=== PATIENT | female | born 1970 | race Caucasian/White ===

== ENCOUNTER 2024-01-25 10:05 | Day surgery (SDC) | payer MEDICAID ==
[2024-01-22 11:17] VITALS: BMI 22.4
[2024-01-25] MEDS ORDERED: Ketorolac Tromethamine 30 MG (1 mL) VIAL ONE (10:40)
[2024-01-25] MEDS ORDERED: Acetaminophen 500 MG TAB ONE (10:41)
[2024-01-25] MEDS ORDERED: Lidocaine 2% PF 5 ML VIAL ONE (10:53)
[2024-01-25] MEDS ORDERED: EPINEPHrine 1 MG/ML VIAL ONE (10:53)
[2024-01-25] MEDS ORDERED: Bupivacaine 0.25% HCL 30 ML VIAL ONE (10:53)
[2024-01-25 11:33] LABS: #Basophils 0.12 10x3/uL (0.0-0.2); %Basophils 0.7 % (0.0-1.0); %Lymphocytes 30.4 % (21.0-51.0); %Monocytes 8.1 % (0.0-10.0); %Neutrophils 55.7 % (42.0-75.0); Hematocrit 37.2 % (36.0-47.0); Hemoglobin 12.2 g/dL (12.0-16.0); Mean Corpuscular HGB CONC 32.8 g/dL (32.0-36.0); Mean Corpuscular Volume 88.4 fL (78.0-98.0); Mean Platelet Volume 9.5 fL (7.4-10.4); Platelet Count 475 10x3/uL (130-400); Red Blood Cell (RBC) Count 4.21 mill/uL (4.20-5.40)
[2024-01-25 11:40] LABS: Anion Gap 13 mmol/L (10-20); BUN (Urea Nitrogen) 19 mg/dL (9.8-20.1); Calc. Creatinine Clearance 66 mL/min (70-130); Calcium 10.1 mg/dL (7.8-10.44); Carbon Dioxide 16 mmol/L (22-29); Chloride 113 mmol/L (98-107); Estimated GFR 74; Glucose 82 mg/dL (70-105); Potassium 4.2 mmol/L (3.5-5.1); Sodium 138 mmol/L (136-145)
[2024-01-25] MEDS ORDERED: Sodium Chloride 0.9% 100 ML ONE (11:48)
[2024-01-25] MEDS ORDERED: CEFAZOLIN 2 GM VIAL ONE (11:48)
[2024-01-25] MEDS ORDERED: Lidocaine 1% PF 5 ML VIAL ONE (12:49)
[2024-01-25] MEDS ORDERED: PROPOFOL 40 ML ONE (12:49)
[2024-01-25] MEDS ORDERED: Midazolam HCl 2 mg/2 ml Vial ONE (12:55)
== END 2024-01-25 14:20 | disposition home or self-care (01) ==
LOC: SDC 10:05
PROVIDERS: ATTEND Specialist
PROC: 0JH63WZ Insertion of Totally Implantable Vascular Access Device into Chest Subcutaneous Tissue and Fascia, Percutaneous Approach (ICD-10-PCS; principal; 2024-01-25)
DX: C50.912 Malignant neoplasm of unspecified site of left female breast (principal); E78.00 Pure hypercholesterolemia, unspecified; I10 Essential (primary) hypertension; Z90.710 Acquired absence of both cervix and uterus; F17.200 Nicotine dependence, unspecified, uncomplicated
CPT/HCPCS: 71045; 80048; 85025; C1788; J0171; J0665; J1642; J1885; J2001; J2250; J2704; J3490

== ENCOUNTER 2024-01-26 14:59 | Observation (INO) | payer MEDICAID ==
[2024-01-26 16:13] LABS: BHCG - Serum Negative (NEGATIVE); Pregs Control Background? CLEAR/WHITE (CLR/WHITE); Pregs Control Bar Appear? YES (CONTROL BAR)
[2024-01-26 16:18] LABS: Bacteria/HPF 3+ HPF (None Seen); Bilirubin Negative (Negative); Blood, Urine Negative (Negative); CAUTI Indications for Culture Pelvic or flank pain; Clarity Clear (Clear); Glucose, Urine (Dipstick) Normal (Negative); Ketone, Urine Negative (Negative); Leukocyte Negative Leu/uL (Negative); Nitrite Negative (Negative); Protein, Urine (Dipstick) Negative (Neg-Trace); RBC/HPF None Seen HPF (0-3); Specific Gravity, Urine 1.005 (1.002-1.036); Squamous Epithelial 0-3 HPF (0-3); Urobilinogen Normal mg/dL (Less than 2); WBC/HPF 0-3 HPF (0-3)
[2024-01-26 16:19] LABS: ALT (SGPT) 5 U/L (8-55); AST (SGOT) 14 U/L (5-34); Albumin 3.8 g/dL (3.5-5.0); Alkaline Phosphatase 120 U/L (40-110); Anion Gap 10 mmol/L (10-20); BUN (Urea Nitrogen) 12 mg/dL (9.8-20.1); Bilirubin, Total 0.2 mg/dL (0.2-1.2); Calc. Creatinine Clearance 0 mL/min (70-130); Calcium 9.9 mg/dL (7.8-10.44); Carbon Dioxide 20 mmol/L (22-29); Chloride 112 mmol/L (98-107); Estimated GFR 81; Globulin 3.6 g/dL (2.4-3.5); Glucose 88 mg/dL (70-105); Lipase 25 U/L (8-78); Potassium 3.7 mmol/L (3.5-5.1); Protein, Total 7.4 g/dL (6.0-8.3); Sodium 138 mmol/L (136-145)
[2024-01-26 16:23] LABS: Troponin I Less than 0.010 ng/mL (< 0.028)
[2024-01-26 16:37] LABS: Band 23 % (5-11); Eosinophils 4 % (0-10); Lymphocytes 24 % (21-51); Monocytes 6 % (0-10); Myelocyte 1 % (0-0); Neutrophil 43 % (42-75); Platelet Adequacy Comment Platelets Normal; Polychromasia SLIGHT = 2-3 cells HPF (0-2)
[2024-01-26 16:49] LABS: Urine Culture Reflex No No
[2024-01-26 17:34] LABS: Hematocrit 33.9 % (36.0-47.0); Hemoglobin 11.4 g/dL (12.0-16.0); Mean Corpuscular HGB CONC 33.9 g/dL (32.0-36.0); Mean Corpuscular Hemoglobin 29.2 pg (27.0-31.0); Mean Corpuscular Volume 85.9 fL (78.0-98.0); Mean Platelet Volume 9.5 fL (7.4-10.4); Platelet Count 422 10x3/uL (130-400); Red Blood Cell (RBC) Count 3.91 mill/uL (4.20-5.40)
[2024-01-26] MEDS ORDERED: Ondansetron ODT 4 MG TAB PO PRN (18:28)
[2024-01-26] MEDS ORDERED: Acetaminophen 325 MG TAB PO PRN (18:28)
[2024-01-26] MEDS ORDERED: Ondansetron PF 4 MG/2 ML Vial IVP PRN (18:28)
[2024-01-26] MEDS ORDERED: Meclizine HCl 25 MG TAB PO PRN (19:52)
[2024-01-26 20:08] VITALS: BMI 23.7
[2024-01-26] MEDS: traMADol HCl 50 MG TAB PO PRN (22:37)
[2024-01-26] MEDS: Nicotine 14 MG PATCH TD PRN (22:37)
[2024-01-27] MEDS: cefTRIAXone\\ROCEPHIN 1 GM in Sodium Chloride 0.9% 100 ML IVPB SCH (00:17)
[2024-01-27 04:25] LABS: Hemoglobin 10.4 g/dL (12.0-16.0); Mean Corpuscular HGB CONC 32.5 g/dL (32.0-36.0); Mean Corpuscular Hemoglobin 29.4 pg (27.0-31.0); Mean Corpuscular Volume 90.4 fL (78.0-98.0); Mean Platelet Volume 9.4 fL (7.4-10.4); Platelet Count 375 10x3/uL (130-400); Red Blood Cell (RBC) Count 3.54 mill/uL (4.20-5.40)
[2024-01-27 04:40] LABS: Anion Gap 13 mmol/L (10-20); BUN (Urea Nitrogen) 13 mg/dL (9.8-20.1); Calc. Creatinine Clearance 81 mL/min (70-130); Calcium 9.5 mg/dL (7.8-10.44); Carbon Dioxide 18 mmol/L (22-29); Chloride 110 mmol/L (98-107); Estimated GFR 91; Glucose 88 mg/dL (70-105); Iron 34 ug/dL (50-170); Iron Binding Capacity, Total 271 mcg/dL (265-497); Sodium 137 mmol/L (136-145)
[2024-01-27 04:53] LABS: Ferritin 46.92 ng/mL (10-291); Thyroid Stimulating Hormone 1.3098 uIU/mL (0.35-4.94)
[2024-01-27 05:50] LABS: Band 8 % (5-11); Eosinophils 5 % (0-10); Lymphocytes 31 % (21-51); Metamyelocyte 2 % (0-0); Monocytes 4 % (0-10); Neutrophil 51 % (42-75); Platelet Adequacy Comment Platelets Normal; RBC Morphology Within Normal Limits; Smudge Cells 7.9 %
[2024-01-27] MEDS: Fioricet 325/50/40 mg Tablet PO PRN (08:18)
[2024-01-27] MEDS: Lorazepam 0.5 MG TAB PO SCH (09:27)
[2024-01-27] MEDS ORDERED: Magnevist 469MG/ML 20 ML VIAL ONE (09:34)
[2024-01-27] MEDS ORDERED: Iopamidol 370 76% 100 ML VIAL ONE (10:14)
[2024-01-27 17:12] VITALS: BP 129/77; TEMP 98.6
== END 2024-01-27 20:30 | disposition home or self-care (01) ==
LOC: ERS 14:59 → 2SE 17:47
PROVIDERS: ADMIT Family Medicine; ATTEND Internal Medicine
DX: R42 Dizziness and giddiness (principal); R51.9 Headache, unspecified; E78.5 Hyperlipidemia, unspecified; F17.210 Nicotine dependence, cigarettes, uncomplicated; R82.71 Bacteriuria; D72.825 Bandemia; Z95.818 Presence of other cardiac implants and grafts; Z85.3 Personal history of malignant neoplasm of breast; Z90.5 Acquired absence of kidney; Z98.890 Other specified postprocedural states; Z90.710 Acquired absence of both cervix and uterus
CPT/HCPCS: 36415; 70450; 70496; 70553; 71045; 76377; 80048; 80053; 81001; 82728; 83540; 83550; 83690; 83735; 84443; 84484; 84703; 85025; 87040; 87086; 93005; 96374; A9579; G0378; J0696; J3490; Q9967

== ENCOUNTER 2024-03-03 12:39 | Outpatient (CLI) | payer OTHER | END 2024-03-03 12:40 | disposition home or self-care (01) | LOC: BICCT 12:39 | PROVIDERS: ATTEND Internal Medicine Hematology & Oncology | DX: C50.412 Malignant neoplasm of upper-outer quadrant of left female breast (principal); I71.43 Infrarenal abdominal aortic aneurysm, without rupture; C79.89 Secondary malignant neoplasm of other specified sites | CPT/HCPCS: 71260; 74177; 82565 ==

== ENCOUNTER 2024-05-31 13:18 | Outpatient (CLI) | payer OTHER ==
[~2024-05-31 13:18] MED LIST: Iopamidol 370 76% 100 ML VIAL ONE
== END 2024-05-31 13:19 | disposition home or self-care (01) ==
LOC: CT 13:18
PROVIDERS: ATTEND Internal Medicine Hematology & Oncology
DX: C50.412 Malignant neoplasm of upper-outer quadrant of left female breast (principal); K57.32 Diverticulitis of large intestine without perforation or abscess without bleeding; R10.9 Unspecified abdominal pain; I71.43 Infrarenal abdominal aortic aneurysm, without rupture; K82.8 Other specified diseases of gallbladder; I51.3 Intracardiac thrombosis, not elsewhere classified; K63.89 Other specified diseases of intestine
CPT/HCPCS: 36415; 74177; 82565; Q9967

== ENCOUNTER 2024-08-22 10:45 | Outpatient (CLI) | payer OTHER ==
[2024-08-22 12:08] LABS: #Basophils 0.09 10x3/uL (0.0-0.2); %Basophils 0.5 % (0.0-1.0); %Eosinophils 5.5 % (0.0-10.0); %Lymphocytes 27.9 % (21.0-51.0); %Monocytes 9.3 % (0.0-10.0); %Neutrophils 56.1 % (42.0-75.0); Hematocrit 34.9 % (36.0-47.0); Hemoglobin 11.2 g/dL (12.0-16.0); Mean Corpuscular HGB CONC 32.1 g/dL (32.0-36.0); Mean Corpuscular Hemoglobin 27.5 pg (27.0-31.0); Mean Corpuscular Volume 85.5 fL (78.0-98.0); Mean Platelet Volume 9.1 fL (7.4-10.4); Platelet Count 435 10x3/uL (130-400); RBC Distribution Width 14.7 % (11.5-14.5); Red Blood Cell (RBC) Count 4.08 mill/uL (4.20-5.40)
[2024-08-22 12:33] LABS: Anion Gap 11 mmol/L (10-20); BUN (Urea Nitrogen) 15 mg/dL (9.8-20.1); Calc. Creatinine Clearance 0 mL/min (70-130); Calcium 10.4 mg/dL (7.8-10.44); Carbon Dioxide 26 mmol/L (22-29); Chloride 106 mmol/L (98-107); Estimated GFR 106; Glucose 86 mg/dL (70-105); Potassium 4.4 mmol/L (3.5-5.1); Sodium 139 mmol/L (136-145)
[2024-08-22 12:39] LABS: SARS-CoV-2 E Target Negative; SARS-CoV-2 N2 Target Negative; SARS-CoV-2 NAA Rapid Test Not Detected (NotDetected); SARS-CoV-2 RdRP gene Negative
== END 2024-08-22 10:46 | disposition home or self-care (01) ==
LOC: LABBT 10:45
PROVIDERS: ATTEND Specialist
DX: Z01.818 Encounter for other preprocedural examination (principal); C50.912 Malignant neoplasm of unspecified site of left female breast
CPT/HCPCS: 71046; 80048; 85025; 93005; 93010; U0002

== ENCOUNTER 2024-08-25 07:37 | Day surgery (SDC) | payer OTHER ==
[2024-08-22 11:17] VITALS: BMI 21.9
[2024-08-25] MEDS ORDERED: Midazolam HCl 2 mg/2 ml Vial ONE ×2 (09:30→10:21)
[2024-08-25] MEDS ORDERED: Ropivacaine 0.2% HCl/PF 20 ML ONE (09:30)
[2024-08-25] MEDS ORDERED: Ropivacaine 0.5% HCl/PF (150 MG/30 ML VIAL) ONE (09:30)
[2024-08-25] MEDS ORDERED: fentaNYL 50 mcg/mL 1 mL Vial ONE ×3 (09:30→13:50)
[2024-08-25] MEDS ORDERED: Ketorolac Tromethamine 30 MG (1 mL) VIAL ONE (09:36)
[2024-08-25] MEDS ORDERED: Acetaminophen 500 MG TAB ONE (09:36)
[2024-08-25] MEDS ORDERED: PROPOFOL 20 ML ONE (09:49)
[2024-08-25] MEDS ORDERED: Lidocaine 1% PF 5 ML VIAL ONE (09:49)
[2024-08-25] MEDS ORDERED: Famotidine/PF 20 mg/2ml Vial ONE (09:56)
[2024-08-25] MEDS ORDERED: Ondansetron PF 4 MG/2 ML Vial ONE ×3 (10:21→14:53)
[2024-08-25] MEDS ORDERED: Rocuronium Bromide 10 MG/ML (10ML VIAL) ONE (10:21)
[2024-08-25] MEDS ORDERED: fentaNYL PF 100 MCG/2 ML SYRINGE ONE (10:22)
[2024-08-25] MEDS ORDERED: EPINEPHrine 1 MG/ML VIAL ONE (10:23)
[2024-08-25] MEDS ORDERED: Bupivacaine 0.25% HCL 30 ML VIAL ONE (10:23)
[2024-08-25] MEDS ORDERED: Isosulfan Blue 50 MG/5 ML VIAL ONE (10:23)
[2024-08-25] MEDS ORDERED: Lidocaine 2% 6 ML (Jelly) SYR ONE (10:23)
[2024-08-25] MEDS ORDERED: Lidocaine 2% PF 5 ML VIAL ONE (10:23)
[2024-08-25] MEDS ORDERED: CEFAZOLIN 1 GM VIAL ONE (10:50)
[2024-08-25] MEDS ORDERED: Glycopyrrolate 0.2 MG/ML 5 ML SYRINGE ONE (11:00)
[2024-08-25] MEDS ORDERED: Albuterol HFA (OR) 200 PUFF INH ONE (11:00)
[2024-08-25] MEDS ORDERED: Dexamethasone 20 MG/5 ML VIAL ONE (11:00)
[2024-08-25] MEDS ORDERED: PHENYLEPHRINE-NS 100 MCG/ML 10 ML SYRINGE ONE (11:00)
[2024-08-25] MEDS ORDERED: ePHEDrine Sulfate 50 MG/10 ML VIAL ONE (11:03)
[2024-08-25] MEDS ORDERED: SUGAMMADEX SODIUM 200 MG/2 ML VIAL ONE ×2 (14:06→14:30)
[2024-08-25] MEDS ORDERED: Promethazine HCl 25 MG/ML VIAL ONE (15:36)
== END 2024-08-25 18:12 | disposition home or self-care (01) ==
LOC: SDC 07:37
PROVIDERS: ATTEND Specialist
PROC: 0HRV07Z Replacement of Bilateral Breast with Autologous Tissue Substitute, Open Approach (ICD-10-PCS; principal; 2024-08-25)
PROC: 07T50ZZ Resection of Right Axillary Lymphatic, Open Approach (ICD-10-PCS; principal; 2024-08-25)
PROC: 0HX5XZZ Transfer Chest Skin, External Approach (ICD-10-PCS; principal; 2024-08-25)
PROC: 0HTV0ZZ Resection of Bilateral Breast, Open Approach (ICD-10-PCS; principal; 2024-08-25)
DX: N60.12 Diffuse cystic mastopathy of left breast (principal); N60.11 Diffuse cystic mastopathy of right breast; R59.9 Enlarged lymph nodes, unspecified; Z79.899 Other long term (current) drug therapy
CPT/HCPCS: 78195; 88307; A6258; A9541; J0171; J0665; J0690; J1100; J1885; J2250; J2405; J2550; J2704; J2795; J3010; J3490; Q9968